=== PATIENT | male | born 1950 | race Caucasian/White ===

== ENCOUNTER 2022-01-09 07:25 | Outpatient (CLI) | payer MEDICARE, BC | END 2022-01-09 07:26 | disposition home or self-care (01) | LOC: CSHCP 07:25 | PROVIDERS: ATTEND Internal Medicine Pulmonary Disease | DX: J84.10 Pulmonary fibrosis, unspecified (principal); R94.2 Abnormal results of pulmonary function studies | CPT/HCPCS: 94060; 94726; 94729; 94760 ==